=== PATIENT | female | born 2000 | race Caucasian/White ===

== ENCOUNTER 2023-09-08 16:30 | Emergency (ER) | payer BC ==
[2023-09-08 16:59] VITALS: BP 112/72; PULSE 96; RESP 18; TEMP 98.2; BMI 29.9
== END 2023-09-08 18:00 | disposition home or self-care (01) ==
LOC: JER 16:30
DX: M54.2 Cervicalgia (principal); R59.9 Enlarged lymph nodes, unspecified
CPT/HCPCS: 99282-25

== ENCOUNTER 2023-09-12 05:12 | Day surgery (SDC) | payer BC ==
[2023-09-09 15:34] VITALS: BMI 29.9
[~2023-09-12 05:12] MED LIST: ceFAZolin SODIUM 1 GM VIAL IVPB ONE
[2023-09-12] MEDS ORDERED: ONDANSETRON 4 MG/2 ML VIAL IVPUSH PRN (13:05)
[2023-09-12] MEDS ORDERED: oxyCODONE HCL 5 MG TABLET PO PRN (13:05)
[2023-09-12] MEDS ORDERED: LACTATED RINGERS SOLUTION 1,000 ML IV SCH (13:15)
[2023-09-12] MEDS ORDERED: PROPOFOL 40 ML ONE (13:34)
[2023-09-12] MEDS ORDERED: FENTANYL CITRATE/PF 50 MCG/ML VIAL ONE ×2 (13:34→13:51)
[2023-09-12] MEDS ORDERED: ceFAZolin SODIUM 1 GM VIAL IVPB ONE (13:48)
[2023-09-12] MEDS ORDERED: ONDANSETRON 4 MG/2 ML VIAL ONE (13:57)
[2023-09-12] MEDS ORDERED: DEXAMETHASONE SOD PHOSPHATE 4 MG/1 ML VIAL ONE (13:57)
[2023-09-12] MEDS ORDERED: KETOROLAC TROMETHAMINE 30 MG/1 ML VIAL ONE (13:57)
[2023-09-12] MEDS ORDERED: ceFAZolin SODIUM 1 GM VIAL ONE ×2 (13:58)
[2023-09-12 15:16] VITALS: RESP 18
[2023-09-12 16:34] VITALS: BP 116/77; PULSE 77; TEMP 98
== END 2023-09-12 15:50 | disposition home or self-care (01) ==
LOC: JASU-SURG 05:12
PROVIDERS: ATTEND Obstetrics & Gynecology
PROC: 10D07Z6 Extraction of Products of Conception, Vacuum, Via Natural or Artificial Opening (ICD-10-PCS; principal; 2023-09-12 12:00)
DX: O02.1 Missed abortion (principal)
CPT/HCPCS: 88305-TC; 94760